=== PATIENT | male | born 1985 | race Caucasian/White ===

== ENCOUNTER 2020-06-10 10:43 | Emergency (ER) | payer MEDICAID ==
[~2020-06-10] VITALS: Ht 177.8 cm; Wt 94.3 kg
[2020-06-10 10:54] VITALS: BP 151/94
[2020-06-10] MEDS ORDERED: LIDOCAINE 1%, 10ML INFIL ONE (11:00)
[2020-06-10] MEDS ORDERED: DIPH,PERTUSS(ACELL),TET VAC/PF 0.5 ML IM-VACC ONE ×2 (11:00→11:03)
[2020-06-10] MEDS ORDERED: LIDOCAINE-MPF 1%, 5ML ONE ×2 (11:03→11:05)
[2020-06-10] MEDS ORDERED: NEOSPORIN OINT. PKT 1 PACKET ONE (11:06)
--- NOTE | 2020-06-10 12:37 | NUR ---
APPLIED BACITRACIN TO STITCHES AND COVERED WITH CLEAN DRY DRESSING.
== END 2020-06-10 12:39 ==
LOC: ED 12:33
DX: S61.210A Laceration without foreign body of right index finger without damage to nail, initial encounter (principal); S61.212A Laceration without foreign body of right middle finger without damage to nail, initial encounter; X58.XXXA Exposure to other specified factors, initial encounter; Y93.89 Activity, other specified; Y92.009 Unspecified place in unspecified non-institutional (private) residence as the place of occurrence of the external cause; Y99.8 Other external cause status
CPT/HCPCS: 12042; 90471; 90715; 99285